=== PATIENT | female | born 1965 | race Caucasian/White ===

== ENCOUNTER 2017-10-01 19:58 | Emergency (ER) | payer BC ==
[2017-10-01] MEDS ORDERED: Ibuprofen ADULT LIQ* 600 MG/30 ML UDC PO ONE (20:12)
[2017-10-01] MEDS ORDERED: Tetan/Diph/Pertus SYR(Tdap)* 0.5 ML SYR(BOOSTRIX) use SYR IM ONE (20:12)
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
[2017-10-01] MEDS ORDERED: Cephalexin CAP* 500 MG PO ONE (20:47)
[2017-10-01 21:34] VITALS: BP 152/93
--- NOTE | 2017-10-02 07:35 | RAD ---
Indication: Knee injury after fall 4 views of the right knee are reviewed. There is fracture of the inferior patella that is mildly comminuted. No significant displacement is noted. Prepatellar swelling is noted. No evidence of a supra patellar effusion is noted. The tibia and femur are unremarkable. IMPRESSION: Nondisplaced fracture of the patella. R0
== END 2017-10-01 21:36 | disposition home or self-care (01) ==
LOC: UCCORT 19:58
DX: S82.002A Unspecified fracture of left patella, initial encounter for closed fracture (principal); S50.312A Abrasion of left elbow, initial encounter; S80.212A Abrasion, left knee, initial encounter; V19.3XXA Pedal cyclist (driver) (passenger) injured in unspecified nontraffic accident, initial encounter; Y93.55 Activity, bike riding; Y92.9 Unspecified place or not applicable
CPT/HCPCS: 90471; 90715; 99214; A9270-GY; G0463